=== PATIENT | female | born 1990 | race Caucasian/White ===

== ENCOUNTER → 2017-04-21 19:30 | Observation (INO) ==
[2017-04-21 15:23] LABS: Bilirubin,Urine Negative (Negative); Blood,Urine Negative (Negative); Color,Urine Yellow (Yellow); Glucose,Urine (UA) Normal (Normal); Ketones,Urine Negative (Negative); Leukocyte Esterase,Urine Negative (Negative); Nitrite,Urine Negative (Negative); Protein,Urine Negative (Neg-Trace); Specific Gravity,Urine 1.027 (1.010-1.025); Urobilinogen,Urine Normal (Normal)
[2017-04-21 15:25] LABS: Clarity,Urine Slightly Hazy (Clear)
[2017-04-21 15:28] LABS: Amphetamine Screen,Urine Negative ng/mL (Cutoff=1000); Barbiturate Screen,Urine Negative ng/mL (Cutoff=200); Benzodiazepines Screen,Urine Negative ng/mL (Cutoff=200); Cannabinoid Screen,Urine Negative ng/mL (Cutoff = 50); Cocaine Screen,Urine Negative ng/mL (Cutoff= 300); Opiate Screen,Urine Negative ng/mL (Cutoff=300); Phencyclidine Screen,Urine Negative ng/mL (Cutoff=25)
--- NOTE | 2017-04-21 15:40 | OB/GYN History & Physical ---
Date of Encounter: 04/21/17 Time of Encounter: 15:32 Assessment and Plan (1) with gestation of unknown duration Current visit: Yes Status: Acute Based on patient's verbalized due date, most likely 36 weeks Will attempt to obtain records from [facility] Urine drug screen negative Ordered US Not anticipating delivery today, but we will obtain whatever deficiencies in labwork she has She verbalizes that she plans to deliver here whenever she begins labor (2) Non-stress test reactive Current visit: Yes Status: Acute Baseline 140 bpm Moderate variability (3) care insufficient Current visit: Yes Status: Acute Had one appointment with [facility] sometime in the first trimester We will obtain labs to fill deficiencies Qualifiers: Trimester: third trimester Qualified Code(s): O09.33 - Supervision of with insufficient care, third trimester History of Present Illness Chief complaint: back pain HPI: Patient is a 26 year-old female who presents to labor and delivery for back pain that started this morning. Patient reports good movement and intermittent contractions. Patient denies vaginal bleeding and leakage of fluid. The patient states that she has not had much in the way of care. She has been seen once at the [facility], where she states that she had US done, as well as some lab work. She is uncertain of any results. She additionally had US evaluation for pain radiating around her upper right abdomen and into her back. She denies headache, visual changes, and significant LE edema. She admits to smoking 0.5 ppd, which is less than before the . She denies other drug use. Blood type: O+ Rubella immune. RPR and Hep B Ag negative Past Med Surg Social Fam HX - Past Medical History Medical history: no medical history Psychiatric history: no psych history - Past Surgical History Surgical History: appendectomy, cholecystectomy, other - Social History Smoking Status: Current every day smoker Packs per day: 0.5 Smokeless Tobacco Status: No Alcohol use: none Drug use: none - Family History Father Adopted: [place]: Anthony Ruelas Living Status: Still Living Hx Family Cardiac Disorders: No Hx Family Respiratory Disorders: No Hx Family Cancer: No Hx Family GI Disorders: No Hx Family Genitourinary Disorders: No Hx Family Endocrine Disorder: No Hx Family Musculoskeletal Disorders: No Hx Family Neuromuscular Disorders: No Hx Family Neurologic Disorders: No Hx Family HEENT Disorders: No Hx Family Autoimmune Disorders: No Hx Family Reproductive Disorders: No Hx Family Psychosocial Disorders: No Hx Family Medical Disorders: No Obstetrical History - Pregnancies : 8 Para: 5 Term: 5 : 0 Ab's: 2 (Ectopic w/ L tube removal 2010, Miscarriage 2013) Livin Medications and Allergies Acetaminophen [Tylenol] 650 mg PO Q6HR PRN #30 tablet 09/27/15 [Rx] Vit/FA 1 each PO DAILY #30 tablet 09/27/15 [Rx] 3 Allergy/AdvReac Type Severity Reaction Status Date / Time No Known Allergies Allergy Verified 08/28/15 20:55 Review of System OB - Constitutional Constitutional ROS IM: as per HPI - Muscloskeletal Musculoskeletal: back pain Exam - Constitutional Constitutional: well developed, well nourished, no acute distress - HEENT HEENT: Normocephaly, Mucus Membranes Moist - Neck Neck exam: trachea midline - Lungs Respiratory exam: CTAB - Cardiovascular Cardiovascular exam: RRR - Abdomen Abdomen: Present: gravid Abdomen detail: right upper quadrant: tenderness - Extremities Extremities exam: normal capillary refill, normal inspection Deep Tendon Reflex Grade: 2+ Normal - Cervix Dilation: 2 (2-3) Effacement: 80 Station: -2 - Uterus Uterus exam: Present: normal size, normal contour Results Abnormal lab results Ur Specimen Adequacy See below A 04/21/17 15:10 Ur Specific [place] 1.027 (1.010-1.025) H 04/21/17 15:10 All other labs normal. - VTE Reasons for not Prescribing Prophylaxis: Treatment not Indicated - Low risk for VTE - Attending Attestation I examined this patient and my medical decision-making was reviewed with the Resident Physician. I agree with the documented findings, disposition and treatment plan as described except to the extent set forth below. Unknown LMP. Unable to state when her she first began to feel movement or when she had a positive test. Denies drug use and states she feels safe. She states she has custody of 4 of her children and gave one of her children to an aunt for adoption because they could not have children of their own. She states she plans of delivering here. HIV is missing from labs - will draw today. POC discussed with Dr Jon. Anticipate discharge home this evening with follow up in the office with Dr Jon for routine care based upon estimated gestational age after ultrasound. Lilo Egan CNM
== END | disposition home or self-care (01) ==
LOC: 1NENULAB
PROVIDERS: ADMIT Obstetrics & Gynecology; ATTEND Obstetrics & Gynecology

== ENCOUNTER → 2017-04-22 20:43 | Observation (INO) ==
--- NOTE | 2017-04-22 20:25 | OB/GYN Progress Note ---
Date of Encounter: 04/22/17 Time of Encounter: 20:23 - Assessment and Plan (1) 36 weeks gestation of Current Visit: Yes Status: Acute (2) Non-stress test reactive Current Visit: No Status: Acute (3) care insufficient Current Visit: No Status: Acute Qualifiers: Trimester: third trimester Qualified Code(s): O09.33 - Supervision of with insufficient care, third trimester (4) contractions Current Visit: No Status: Acute No cervical change since yesterday. Discharge home with precautions after flexeril for pain. Subjective - Subjective Interval history: presenting at 36w2d with c/o lower back pain and pelvic pressure. She also reports irregular contractions. No LOF or VB. Good FM. Antepartum ROS: movement normal, contractions, no loss of fluid, no vaginal bleeding Objective - Vital Signs Vital Signs: Intake and Output 04/22/17 04/22/17 04/22/17 07:59 15:59 23:59 Other: Weight 79.7 kg Patient Weight 04/22/17 23:59 Weight 79.7 kg - Exam FHR: category 1 FHR comments: NST reactive Abdomen: Present: soft, gravid Uterus: Absent: tenderness Cervical dilation: 3/80/-1 Comments: TTP across lower back and tailbone. No CVAT.
== END | disposition home or self-care (01) ==
LOC: 1NENULAB
PROVIDERS: ADMIT Obstetrics & Gynecology; ATTEND Obstetrics & Gynecology

== ENCOUNTER 2017-05-12 06:00 | Inpatient (IN) ==
[2017-05-12] MEDS ORDERED: Naloxone 0.4 MG/ML INJ IVP PRN (06:36)
[2017-05-12] MEDS ORDERED: Famotidine 20 MG/2 ML VIAL IVP PRN (06:36)
[2017-05-12] MEDS ORDERED: *HR* Nalbuphine 20 MG/ML AMPUL IVP PRN (06:41)
[2017-05-12] MEDS ORDERED: Ringers Solution, Lactated 1,000 ML IVC SCH (06:45)
[2017-05-12 06:46] LABS: Basophils % 0.3 %; Eosinophils % 0.3 %; Hemoglobin 11.3 g/dL (11.5-15.4); Immature Platelets 6.8 % (1.1-6.1); Lymphocytes # 2.7 K/mcL (0.6-4.6); Lymphocytes % 23.9 %; Mean Corpuscular HGB Conc 33.2 g/dL (31.6-35.5); Mean Corpuscular Hemoglobin 30.5 pg (28.0-33.3); Mean Corpuscular Volume 91.6 fL (83.0-100.0); Mean Platelet Volume 10.8 fL (9.4-12.4); Monocytes # 0.6 K/mcL (0.0-1.3); Monocytes % 5.5 %; Neutrophils # 7.9 K/mcL (1.6-8.9); Platelet Count 222 K/mcL (140-400); Red Blood Count 3.71 M/mcL (3.82-4.97); Red Cell Distribution Width 13.5 % (11.5-14.5)
[2017-05-12 06:54] LABS: Amphetamine Screen,Urine Negative ng/mL (Cutoff=1000); Barbiturate Screen,Urine Negative ng/mL (Cutoff=200); Benzodiazepines Screen,Urine Negative ng/mL (Cutoff=200); Cannabinoid Screen,Urine Negative ng/mL (Cutoff = 50); Cocaine Screen,Urine Negative ng/mL (Cutoff= 300); Opiate Screen,Urine Negative ng/mL (Cutoff=300); Phencyclidine Screen,Urine Negative ng/mL (Cutoff=25)
[2017-05-12] MEDS ORDERED: miSOPROStol 25 MCG TABLET PO SCH (08:00)
--- NOTE | 2017-05-12 08:13 | OB/GYN History & Physical ---
Date of Encounter: 05/12/17 Time of Encounter: 08:11 Assessment and Plan (1) 39 weeks gestation of Current visit: Yes Status: Acute patient admitted for inpatient status (2) Elective induction of labor planned Current visit: Yes Status: Acute cytotec 50mcg po x1 (3) Tobacco use affecting , antepartum Current visit: Yes Status: Acute Patient educated on smoking cessation History of Present Illness Chief complaint: Patient here for scheduled IOL HPI: Ms. London is a 26 year old female at 39w0d presents to labor and delivery for scheduled IOL for Dr. Jon. Patient reports +FM and contractions. Denies LOF or VB. Blood type: O+, Rubella: Immune, Hep B: nonreactive, GBS: Negative. Cytotec 50mcg PO given for IOL. Past Med Surg Social Fam HX - Past Medical History Source: patient Medical history: no medical history Psychiatric history: no psych history - Past Surgical History Surgical History: appendectomy, cholecystectomy, other - Social History Smoking Status: Current every day smoker Packs per day: 1/2 Smokeless Tobacco Status: No Alcohol use: none Drug use: none Current living situation: Home - Independent Activity Level: Independent ambulation Recent Out of Country Travel Within the Last 8 Weeks: No Exposure or Possible Exposure to Illness During Travel: No - Family History Father Adopted: No Living Status: Still Living Hx Family Cardiac Disorders: No Hx Family Respiratory Disorders: No Hx Family Cancer: No Hx Family GI Disorders: No Hx Family Genitourinary Disorders: No Hx Family Endocrine Disorder: No Hx Family Musculoskeletal Disorders: No Hx Family Neuromuscular Disorders: No Hx Family Neurologic Disorders: Yes (epilepsy) Hx Family HEENT Disorders: No Hx Family Autoimmune Disorders: No Hx Family Reproductive Disorders: No Hx Family Psychosocial Disorders: No Hx Family Medical Disorders: No Obstetrical History - Pregnancies : 8 Para: 5 Term: 5 : 0 Ab's: 2 Livin - History/Complications History/Complications: History of PPH with first delivery Medications and Allergies Acetaminophen [Tylenol] 650 mg PO Q6HR PRN #30 tablet 09/27/15 [Rx] Vit/FA 1 each PO DAILY #30 tablet 09/27/15 [Rx] 3 Allergy/AdvReac Type Severity Reaction Status Date / Time ibuprofen [From Motrin] Allergy Anaphylaxis Verified 05/12/17 06:52 tramadol Allergy Anaphylaxis Verified 05/12/17 06:52 Review of System OB - Constitutional Constitutional ROS IM: no chills, no fatigue, no headache(s) - Cardiovascular Cardiovascular: no chest pain, no lightheadedness, no palpitations, no syncope - Respiratory Respiratory: no dyspnea Exam - Constitutional Constitutional: well developed, well nourished, no acute distress, average body habitus - HEENT HEENT: Normocephaly, Mucus Membranes Moist - Neck Neck exam: full ROM, supple - Lungs Respiratory exam: CTAB - Cardiovascular Cardiovascular exam: RRR, +S1, +S2 - Abdomen Abdomen: Present: bowel sounds normal, gravid, non tender - Extremities Extremities exam: full ROM, normal capillary refill Deep Tendon Reflex Grade: 2+ Normal - Comments Comments: FHR 135 bpm moderate variability +15x15 accels no decels noted. Cat. 1 tracing. Contractions 3-4 min apart. Results Result Diagrams: 05/12/17 06:43 Abnormal lab results WBC 11.5 K/mcL (4.3-11.1) H 05/12/17 06:43 RBC 3.71 M/mcL (3.82-4.97) L 05/12/17 06:43 Hgb 11.3 g/dL (11.5-15.4) L 05/12/17 06:43 Hct 34.0 % (35.3-44.9) L 05/12/17 06:43 Immature Plt Fraction 6.8 % (1.1-6.1) H 05/12/17 06:43 All other labs normal. - VTE Reasons for not Prescribing Prophylaxis: Treatment not Indicated - Low risk for VTE
[2017-05-12] MEDS ORDERED: *HR* FentaNYL (PF) 100 MCG/2 ML VIAL ONE (08:18)
[2017-05-12] MEDS ORDERED: Bupivacaine-MPF 0.25% 10 ML VIAL ONE (08:18)
[2017-05-12] MEDS ORDERED: Epidural Premix (fent/bupiv) 110 ML EP ONE (08:19)
--- NOTE | 2017-05-12 09:09 | Anesthesia Procedures ---
Date of Encounter: 05/12/17 Time of Encounter: 09:07 Procedures: Anesthesia - Epidural/Spinal Patient ID/Chart reviewed: Yes Patient examined: Yes OB Eval: Gestational age: 39 weeks 0 days OB Eval: : 8 OB Eval: Hx Para: 5 OB Eval: Contractions: Non-stressed pattern Consent Obtained: Yes Supplemental Oxygen: None/Room Air Site Prep: Aseptic Technique, Sterile prep and drape, Povidone-Iodine 1% Patient position: upright Local Anesthetic: Lidocaine 1% Amount of Local Anesthetic used: 3 Touhy Needle Gauge: 18 Touhy Needle Depth (cm): 4 (really 4.5cm) Catheter Depth at Skin (cm): 10 (placed at 0853) Test Dose (1.5% Lido + Epi): Volume given (mls): 5 Test Dose Result: Negative Loading Dose: 0.25% Marcaine (mls): 5 Loading Dose: Fentanyl (mcg): 100 Loading Dose Administered: Thru Catheter Infusion Med: 0.125% Bupivacaine w/ 2 mcg/ml Fentanyl Infusion Rate (mls/hr): 14 (demand bolus of 5mL q20min PRN) Catheter Secured in Place: Tegaderm, Tape Interspace Used: L4-L5 Loss of Resistance (RADHA): Yes Blood: No CSF: No Paresthesia: Yes (transient LLE w/ advancement of catheter) Vitals + FHT's: 3 Vital Signs Time pre-preprocedure post-procedure BP 121/79 117/69 Pulse 96 90 Resp 16 14 O2 Sat
--- NOTE | 2017-05-12 09:19 | Anesthesia Evaluation PreOp ---
Date of Encounter: 05/12/17 Time of Encounter: 08:00 - Past History Planned Operation: MARIAMA Cardiac History: Denies any Significant Hx Pulmonary History: Smoker, Pack/yr (6) INFORMATION SYSTEMS DIRECTOR History: Denies Any Significant HX Other Medical History: Denies Any Significant HX Anesthesia History: No Prior Anesthetic Complications, Past Anesthesia (denies personal h/o GA or RA complications; denies family h/o GA complications) : Yes Test: Positive Alcohol Use: none Drug use: none Medications and Allergies Acetaminophen [Tylenol] 650 mg PO Q6HR PRN #30 tablet 09/27/15 [Rx] Vit/FA 1 each PO DAILY #30 tablet 09/27/15 [Rx] 3 Allergy/AdvReac Type Severity Reaction Status Date / Time ibuprofen [From Motrin] Allergy Anaphylaxis Verified 05/12/17 06:52 tramadol Allergy Anaphylaxis Verified 05/12/17 06:52 - Meds/Allergy Pre-op Review Medications Reviewed: Yes Allergies Reviewed: Yes Beta Blockers on Current Med List: No Anesthesia Results - Labs 05/12/17 06:43 Anesthesia Exam 127/89, HR 96, RR 16 NPO (# of Hours): solids > 8hrs Pain Scale: 0 Pain Scale Used: Numeric (1 - 10) - HEENT Pupil (Motor): Pupils equal Mallampati: II Teeth: Normal Oral Opening: Greater than 3 - INFORMATION SYSTEMS DIRECTOR LOC: Oriented INFORMATION SYSTEMS DIRECTOR Motor: Normal RUE, Normal LUE, Normal RLE, Normal LLE, Normal Face INFORMATION SYSTEMS DIRECTOR Sensory: Normal: RUE, LUE, RLE, LLE, Face - Cardiac Rhythm: Regular Murmur: None - Pulmonary Breath Sounds: bilateral Clear Respiratory Effort: Symmetrical Anesthesia Assess/Plan ASA Score: 2 Modified Hannah Scale for Level of Consciousness: Cooperative, oriented, and tranquil Anesthetic Plan: Regional Autologous Blood: No Monitoring Plan: Standard Monitors Recovery Plan: Other
--- NOTE | 2017-05-12 09:35 | OB Labor Progress Note ---
Date of Encounter: 05/12/17 Time of Encounter: 09:34 Labor Progress Note - Subjective Subjective: Patient resting in bed comfortable with epidural in place. Bolanos catheter draining clear yellow urine. - Cervix Cervix: 5.5/80/-1 - Heart Tones Heart Tones: 135 bpm moderate variability +15x15 accels no decels noted. Cat. 1 tracing - [place]: 3-4 min apart - Interventions Interventions: SVE, AROM copious amount of clear fluid. Patient tolerated well. - Plan Plan: Continue labor management.
[2017-05-12] MEDS ORDERED: Oxytocin 20 units/ LR 1000 mL 20 UNIT/1,000 ML BAG IVC ONE ×2 (09:36→14:07)
--- NOTE | 2017-05-12 12:38 | OB/GYN Procedure Note ---
Delivery - Delivery Date: 05/12/17 Provider: Tony Jon Intrapartum events: none Delivery induction: misoprostol Delivery monitor: external FHT, external uterine Anesthesia: epidural Estimated Blood Loss: 150 - (s) Infant A Infant Delivery Date: 05/12/17 Presentation: vertex Position: TATUM Route of delivery: Gender: Male Viability: Viable Shoulder Dystocia: not encountered Specimens collected: cord blood Placenta: spontaneous Cord: 3 umbilical vessels - Repair Episiotomy: none Laceration Description: None - Complications Delivery complications: none - Disposition Mom disposition: stable in LDR disposition: stable in LDR - Comments Comments: Pt s/p of liveborn male infant without complications. Spontaneous delivery of normal placenta with 3 vc. No laceration and no complications.
[2017-05-12] MEDS ORDERED: Measles/Mumps/Rubella Vacc 0.5 ML VIAL SQ PRN (14:07)
[2017-05-12] MEDS ORDERED: Rho Immune Globulin 1,500 UNIT SYRINGE IM PRN (14:07)
[2017-05-12] MEDS ORDERED: Oxytocin 20 units/ LR 1000 mL 20 UNIT/1,000 ML BAG IVC SCH (14:07)
[2017-05-12] MEDS: Acetaminophen 325 MG TABLET PO PRN ×2 (14:19→19:04)
[2017-05-13] MEDS: Acetaminophen 325 MG TABLET PO PRN ×2 (00:59→06:36)
--- NOTE | 2017-05-13 08:37 | Discharge Summary ---
Date of Encounter: 05/13/17 Time of Encounter: 08:34 - Discharge Diagnosis (1) Vaginal delivery Priority: Primary Status: Acute Comments: Pt states feeling well. Meeting all milestones, Pain well managed po pain medication, bottle feeding, desires discharge. - Discharge Medications Prescriptions: Docusate [Colace] 100 mg PO BID #60 capsule Home Medications: Acetaminophen [Tylenol] 650 mg PO Q6HR PRN #30 tablet 09/27/15 [Rx] Vit/FA 1 each PO DAILY #30 tablet 09/27/15 [Rx] Acetaminophen [Tylenol] 650 mg PO Q6HR PRN tablet 05/13/17 [Rx] Docusate [Colace] 100 mg PO BID #60 capsule 05/13/17 [Rx] Vit/FA 1 each PO DAILY tablet 05/13/17 [Rx] Allergies/Adverse Reactions: 3 Allergy/AdvReac Type Severity Reaction Status Date / Time ibuprofen [From Motrin] Allergy Anaphylaxis Verified 05/12/17 06:52 tramadol Allergy Anaphylaxis Verified 05/12/17 06:52 Data Procedures and tests throughout hospitalization: Laboratory Tests 05/12/17 05/12/17 06:43 06:43 WBC 11.5 H RBC 3.71 L Hgb 11.3 L Hct 34.0 L MCV 91.6 MCH 30.5 MCHC 33.2 RDW 13.5 Plt Count 222 MPV 10.8 Immature Gran % 1.0 Seg Neutrophils % 69.0 Lymphocytes % 23.9 Monocytes % 5.5 Eosinophils % 0.3 Basophils % 0.3 Neutrophils # 7.9 Lymphocytes # 2.7 Monocytes # 0.6 Eosinophils # 0.0 Basophils # 0.0 Immature Plt Fraction 6.8 H Urine Opiates Screen Negative Ur Barbiturates Screen Negative Ur Phencyclidine Scrn Negative Ur Amphetamines Screen Negative U Benzodiazepines Scrn Negative Urine Cocaine Screen Negative U Marijuana (THC) Screen Negative Date of admission: 05/12/17 06:08 Primary care physician: PCP NONE Consults: 05/12/17 14:07 Consult to Laboratory Engineer [CONS] Routine Comment: Vaginal delivery, consult needed Discharging clinician: Sierra Correa Anticipated date of discharge: 05/13/17 - Patient Status Disposition: Home, Self-Care Condition: Good Functional capacity at discharge: independent ambulation Overall status at discharge: patient is back to baseline - Discharge Instructions Follow Up With: NONE,PCP [Primary Care Provider] - Tony Jon MD [Partnered Physician] - - Diet and Activity Activity: resume usual activities as tolerated Diet: regular diet Hospital Course Reason for admission: induction of labor, IUP at term Delivery: Episiotomy: none Laceration: none Other procedures: none complications: none Discharge diagnosis: IUP at term delivered baby: male Hospital course: Delivery - Delivery Date: 05/12/17 Provider: Tony Jon Intrapartum events: none Delivery induction: misoprostol Delivery monitor: external FHT, external uterine Anesthesia: epidural Estimated Blood Loss: 150 - (s) A Infant Delivery Date: 05/12/17 Presentation: vertex Position: TATUM Route of delivery: Gender: Male Viability: Viable Shoulder Dystocia: not encountered Specimens collected: cord blood Placenta: spontaneous Cord: 3 umbilical vessels - Repair Episiotomy: none Laceration Description: None - Complications Delivery complications: none - Disposition Mom disposition: stable in LDR disposition: stable in LDR - Comments Comments: Pt s/p of liveborn male infant without complications. Spontaneous delivery of normal placenta with 3 vc. No laceration and no complications. Time spent discussing smoking cessation with patient: 3 to 10 minutes Time Attestation: Total time spent providing and/or coordinating discharge services: Time Spent: Less than 30 minutes Exam - Constitutional Vitals: Temp Pulse Resp BP Pulse Ox 97.3 F L 84 16 105/69 98 05/13/17 03:40 05/13/17 03:40 05/13/17 03:40 05/13/17 03:40 05/13/17 03:40 General appearance IM: A&O X 3 - Respiratory Respiratory exam: Present: CTAB - Cardiovascular Cardiovascular exam IM: Present: RRR, +S1, +S2 - GI/Abdominal GI/Abdominal exam IM: normal bowel sounds, soft - Uterine Tone: Firm Uterus Position: At Umbilicus - Extremities Exam Extremities exam IM: Present: normal inspection - Neurological Exam Neurological exam: normal gait, oriented X3 - Psychiatric Additional comments: Reports good mood.
[2017-05-13] MEDS ORDERED: Prenatal Vit/FA 1 EACH TABLET PO SCH (09:00)
[2017-05-13 09:05] LABS: Basophils % 0.4 %; Eosinophils # 0.1 K/mcL (0.0-0.6); Eosinophils % 0.8 %; Hematocrit 34.8 % (35.3-44.9); Hemoglobin 11.2 g/dL (11.5-15.4); Immature Granulocytes % 0.5 % (0-4); Lymphocytes # 2.8 K/mcL (0.6-4.6); Lymphocytes % 29.6 %; Mean Corpuscular HGB Conc 32.2 g/dL (31.6-35.5); Mean Corpuscular Hemoglobin 30.2 pg (28.0-33.3); Mean Corpuscular Volume 93.8 fL (83.0-100.0); Mean Platelet Volume 11.3 fL (9.4-12.4); Monocytes # 0.6 K/mcL (0.0-1.3); Monocytes % 5.8 %; Neutrophils # 5.9 K/mcL (1.6-8.9); Platelet Count 212 K/mcL (140-400); Red Blood Count 3.71 M/mcL (3.82-4.97); Segmented Neutrophils % 62.9 %
[2017-05-13 09:27] VITALS: BP 117/79
== END 2017-05-13 12:15 | disposition home or self-care (01) | DRG 560 ==
LOC: 1NENULAB 06:08 → 1NENUOBS 14:36
PROVIDERS: ADMIT Obstetrics & Gynecology; ATTEND Obstetrics & Gynecology